=== PATIENT | female | born 1975 | race Caucasian/White ===

== ENCOUNTER 2016-06-27 11:16 | Inpatient (IN) | payer OTHER ==
[~2016-06-27] VITALS: Ht 165.1 cm; Wt 50.3 kg
--- NOTE | ~2016-06-27 | HC ---
[facility] [place] [address] [place] [address] CONSULTATION Name: BERTHA MONAHAN Room #: 459-P [facility] IN M.R.#: [id number] Admission: 06/27/16 Attend Phys: Jatinder Lawrence MD Discharge: Date of : 75 Report #: [id number] THIS REPORT FOR: //name// CC: LILI Lawrence MD DATE OF SERVICE: 06/28/2016 HISTORY OF PRESENT ILLNESS: The patient is a 40-year-old female with a history of alcohol and drug abuse who reports several days of nausea and vomiting. On admission yesterday, her AST was 7740, today is 11,712, total bilirubin today is 2.5, was 4.6 yesterday, ALT today is 3450 yesterday was 2433. The patient consumes alcohol on a regular basis high amount, typically vodka; however, she states her last drink was approximately 5 days ago. When asking her about Tylenol, she said her last dose of Tylenol was 3 days ago; however, it appears she may be taking a narcotic with acetaminophen in it as well, which she has been taking on a regular basis apparently. She does complain of some midepigastric abdominal pain. She denies any previous history of alcohol withdrawal, apparently was hospitalized at [facility] within the last few months and she was told she had a mass in her chest. She states this was found on an upper endoscopy as she presented with nausea, vomiting and hematemesis. I do not have a copy of these results. She denies any hematemesis at this time. She denies any melanotic stools. No fevers or chills. No shortness of breath. When entering the room, she was resting comfortably. She was easily awoken. She does not appear to be in any distress. Primary complaint at this time is nausea and feeling poor in general. She denies any chest pain. PAST MEDICAL HISTORY: History of alcohol abuse, history of anxiety. She has had ectopic kidney, previous history of renal stones, previous appendectomy, asthma. REVIEW OF SYSTEMS: As per HPI. MEDICATIONS: On admission are listed as K-Dur and Zofran, again it is unclear if she was taking a narcotic with acetaminophen. ALLERGIES: KETOROLAC, LATEX, MORPHINE, LORAZEPAM. SOCIAL HISTORY: She has a history of heavy alcohol use, usually a pint a day of vodka, although she states her last drink was 5 days ago. She also smokes on a regular basis. She also uses cocaine at times. FAMILY HISTORY: Negative for liver disease. [address] [address] CONSULTATION Name: BERTHA MONAHAN Room #: 459-[facility] IN M.R.#: [id number] Admission: 06/27/16 Attend Phys: Jatinder Lawrence MD Discharge: Date of : 75 Report #: [id number] PHYSICAL EXAMINATION: VITAL SIGNS: Temperature is 98.2, pulse , blood pressure 94/58, respiratory rate is 18. GENERAL: She is alert and oriented x 3 in no acute distress. HEENT: Sclerae nonicteric. Oropharynx is clear. She does have ecchymosis above and below her right eye, mild. NECK: Supple. CARDIOVASCULAR: Regular rate and rhythm. CHEST: Clear to auscultation bilaterally. ABDOMEN: Soft. She has significant previous scarring from abdominal surgery, but this is all well healed. She is mildly tender in the right upper quadrant, no obvious hepatomegaly is noted on exam. EXTREMITIES: No cyanosis, clubbing or edema. LABORATORY DATA: Sodium 135, potassium 3.3, chloride 101, bicarbonate 26, BUN 30, creatinine 0.9, glucose 89. AST is 11,712, total bilirubin is 2.5, calcium 8.3, ALT is 3450, total protein 5.9, albumin 2.7, ammonia level yesterday was 26, lactic acid level 1.5. Troponin less than 0.04, drug screen was positive for methamphetamines, benzodiazepine, cocaine and opiates. WBC is 2.1, hemoglobin 11.7, MCV is 106.1, platelet count is 63. Beta hCG is negative. IMAGING: Chest x-ray yesterday normal chest, no mass identified. Next, CAT scan of the abdomen and pelvis done yesterday as well, mild prominence of the central intrahepatic bile ducts and more pronounced prominence of the common bile duct measuring up to 1.6 cm with gradual tapering distally, this likely represents post-cholecystectomy changes, pancreas screen were normal. The right kidney is surgically absent. There is compensatory hypertrophy of the left kidney with a 1.4 cm cyst in the left superior renal pole, several 2 mm nonobstructive stones were noted in the left inferior renal pole. Distal esophagus unremarkable. There is wall thickening within the region of the gastric antrum and pylorus, which is unchanged. The bowel was normal in caliber. No free air or free fluid, no lymphadenopathy. There is circumferential wall thickening above the gallbladder, which is nonspecific. No worrisome lytic or blastic osseous lesions were seen. ASSESSMENT AND PLAN: Elevated liver function tests. Her AST and ALT are significantly elevated and actually higher today than yesterday. We will proceed with stat acetaminophen level as the patient may have been taking Lortab or medication like this with acetaminophen although she reports her last Tylenol dose was 3 days ago, especially with her history of alcohol abuse and elevation in her numbers. We will also check her stat INR. Beyond that we will also proceed with a viral hepatitis panel and autoimmune markers. We will continue obviously to follow her liver function tests closely. Currently, she is alert and awake. We will need to follow her ammonia levels as well. It is possible the AST and ALT level is being elevated, is due to alcohol. We will need to follow her closely for alcohol withdrawal, although she states her last [facility] [address] [place] [address] CONSULTATION Name: BERTHA MONAHAN Room #: 459-P ADM IN M.R.#: [id number] Admission: 06/27/16 Attend Phys: Jatinder Lawrence MD Discharge: Date of : 75 Report #: [id number] consumption was 5 days ago and she appears to be very stable at this time. We will continue to follow the patient closely. Thank you for allowing me to participate in her care. By: [id number] Artis Sanchez MD /nt
--- NOTE | ~2016-06-27 | EKG ---
[address] [address] ELECTROCARDIOGRAM REPORT Name: BERTHA MONAHAN Room #: 459-P ADM IN M.R.#: [id number] Admission: 06/27/16 Attend Phys: Jatinder Lawrence MD Discharge: Date of : 75 Report #: [id number] THIS REPORT FOR: //name// [facility] ED Test Date: 2016-06-27 Test Time: 11:31:02 Pat Name: BERTHA MONAHAN Department: Room: [facility] Gender: F Road [employer]: ron : 1975 Requested By: Red Mauro Order Number: [id number] MD: Manuel Tsang Measurements Intervals Wing Rate: 90 P: 78 NC: 141 QRS: 65 QRSD: 94 T: 41 QT: 366 QTc: 448 Interpretive Statements Sinus rhythm Right atrial enlargement Compared to ECG 06/13/2011 22:19:15 Atrial abnormality now present Electronically Signed On 06-29-2016 8:44:45 CDT by Manuel Tsang [email or web address] <ELECTRONICALLY SIGNED> By: Manuel Tsang MD 06/29/16 0844 113 30 Manuel Tsang MD /MATTHEW
[~2016-06-27 11:16] MED LIST: ADVAIRDISKUS; BACTRIM DS TAB1 EACH PO; CIPRO250 M1 PO; CLONAZEPAM PO; COLACE100 MG PO; CYMBALTA PO; DAZIDOX10 MG PO; DILAUDID 4 MG TA4 M1; DILAUDID 4 MG TA4 M1 PO; DILAUDID2 M1 PO; DURAGESIC1 EAC2; ELMIRON PO; FENTANYL PA25 MCG/HR; FENTANYL PATCH75 MCG TP; FLOMAX PO; FLOMAX0.4 MG PO; GLYCOLAX POWDER17 G1 PO; HYDROCODON-ACE1 EAC5 PO; HYDROCODONE-AP1 EAC6 PO; HYDROXYZINE HCL10 M1; HYDROXYZINE HCL50 MG PO; HYDROXYZINE PAM25 M1 PO; LAMICTAL; LIORESAL 10 MG10 MG PO; MACROBID; MEDROLDOSEPACK PO; MIRTAZAPINE PO; NEXIUM 40 MG CA40 M1; NOHOMEMEDICATIONS; NORCO 5-325 TA1 EACH PO; NYSTATIN1 EAC9 TOP; OXYBUTYNIN 5 MG5 M1; PENICILLIN VK500 M1 PO; PERCOCET 10-321 EACH; PERCOCET 10-321 EACH PO; PERCOCET 5-3251 EACH PO; PHENERGAN 25 MG25 M1; PHENERGAN 25 MG25 M1 PO; PHENERGAN25 M2 RE; POTASSIUM20 PO; PROVENTIL; PROVENTIL INH; PYRIDIUM200 MG PO; SEROQUEL PO; SOMA250 MG; TAMSULOSIN HCL0.4 MG PO; TRAMADOL 50 MG50 MG PO; ULTRAM 50MG TAB50 MG PO; VICODIN 5-5001 EACH PO; ZOFRAN ODT4 MG PO; ZOFRAN4 MG; ZOFRAN4 MG SL; [UNRECOGNIZED DRUG - OTHER]
[2016-06-27 11:20] VITALS: BP 115/84
[2016-06-27 12:46] LABS: ABSOLUTE NEUTROPHILS 2.4 thou/uL (1.4-8.2); BASOPHILS 1.5 % (0.0-2.0); EOSINOPHILS 0.9 % (0.0-3.0); HEMATOCRIT 44.6 % (37.0-47.0); HEMOGLOBIN 15.4 gm/dL (12.0-15.0); LYMPHOCYTES 11.3 % (24.0-44.0); MCH 36.3 pg (26.0-34.0); MCHC 34.6 g/dL (28.0-37.0); MCV 104.7 fL (80.0-100.0); MONOCYTES 6.1 % (1.0-8.0); POLYS 80.2 % (36.0-66.0); RBC 4.26 mil/uL (4.20-5.00); RDW 15.9 % (10.5-14.5)
[2016-06-27 12:48] LABS: MANUAL DIFF NO
[2016-06-27 12:54] LABS: ANION GAP 10 mmol/L (7-16); BUN 37 mg/dL (7-18); CHLORIDE 94 mmol/L (98-107); CO2 30 mmol/L (21-32); CREATININE 0.9 mg/dL (0.6-1.0); GLUCOSE 98 mg/dL (74-106); POTASSIUM 3.3 mmol/L (3.5-5.1); SODIUM 134 mmol/L (136-145)
[2016-06-27 13:05] LABS: ALBUMIN 4.2 g/dL (3.4-5.0); ALKALINE PHOSPHATASE 270 U/L (46-116); SGPT 2433 U/L (30-65); TOTAL BILIRUBIN 4.6 mg/dL (<0.1-1.0); TOTAL PROTEIN 8.9 g/dL (6.4-8.2); TROPONIN-I < 0.04 ng/mL (<0.04-0.07)
[2016-06-27 13:23] LABS: SGOT 7740 U/L (15-37)
[2016-06-27 13:55] LABS: PLATELET COUNT 79 thou/uL (150-400); PLATELET ESTIMATE SLIGHTLY DECREASED
[2016-06-27 15:13] LABS: URINE BILIRUBIN 1+ (Negative); URINE BLOOD 2+ (Negative); URINE COLOR YELLOW; URINE GLUCOSE-RANDOM* NEGATIVE (Negative); URINE KETONES TRACE (Negative); URINE NITRITE NEGATIVE (Negative); URINE PROTEIN (DIPSTICK) 1+ (Negative)
[2016-06-27 15:23] LABS: ICTOTEST (BILI CONFIRMATORY) Positive (Negative)
[2016-06-27 15:39] LABS: AMP/METHAMP POSITIVE (Negative); BARBITURATES Negative (Negative); BENZODIAZEPINES POSITIVE (Negative); COCAINE POSITIVE (Negative); METHADONE Negative (Negative); OPIATES POSITIVE (Negative); PCP Negative (Negative); THC Negative (Negative)
[2016-06-27 15:43] LABS: CASTS None Seen /LPF (None Seen); SQUAMOUS >10 Many /LPF (0-3)
[2016-06-27 15:44] LABS: BACTERIA None Seen /HPF (None Seen); CRYSTALS None Seen /LPF (None Seen); URINE RBC 0-2 Rare /HPF (0-2); URINE WBC 0-5 Rare /HPF (0-5)
[2016-06-27 16:00] VITALS: BP 111/77
[2016-06-27 20:17] VITALS: BP 109/68
[2016-06-28 05:19] VITALS: BP 97/62
[2016-06-28 05:32] LABS: HEMATOCRIT 33.6 % (37.0-47.0); MCH 37.1 pg (26.0-34.0); MCHC 34.9 g/dL (28.0-37.0); MCV 106.1 fL (80.0-100.0); RBC 3.17 mil/uL (4.20-5.00); WBC 2.1 thou/uL (4.0-11.0)
[2016-06-28 05:34] LABS: HEMOGLOBIN 11.7 gm/dL (12.0-15.0)
[2016-06-28 05:55] LABS: ALBUMIN 2.7 g/dL (3.4-5.0); CALCIUM 8.3 mg/dL (8.5-10.1); CREATININE 0.9 mg/dL (0.6-1.0); POTASSIUM 3.3 mmol/L (3.5-5.1); TOTAL BILIRUBIN 2.5 mg/dL (<0.1-1.0); TOTAL PROTEIN 5.9 g/dL (6.4-8.2)
[2016-06-28 08:23] VITALS: BP 102/65
[2016-06-28 13:11] VITALS: BP 94/58
[2016-06-28 16:49] VITALS: BP 99/61
[2016-06-28 16:49] LABS: INR 1.3
[2016-06-28 21:35] VITALS: BP 99/67
[2016-06-29 04:05] VITALS: BP 112/71
[2016-06-29 06:14] LABS: ALBUMIN 2.6 g/dL (3.4-5.0); CALCIUM 8.2 mg/dL (8.5-10.1); CREATININE 0.7 mg/dL (0.6-1.0); DIRECT BILIRUBIN 1.3 mg/dL (<0.1-0.3); POTASSIUM 3.7 mmol/L (3.5-5.1); TOTAL BILIRUBIN 1.9 mg/dL (<0.1-1.0); TOTAL PROTEIN 5.4 g/dL (6.4-8.2)
[2016-06-29 07:15] VITALS: BP 110/71
[2016-06-29 11:28] VITALS: BP 117/84
[2016-06-29 16:15] VITALS: BP 126/92
[2016-06-29 22:21] VITALS: BP 148/106
[2016-06-30 02:00] VITALS: BP 111/65
[2016-06-30 05:35] LABS: HEMATOCRIT 32.2 % (37.0-47.0); HEMOGLOBIN 11.2 gm/dL (12.0-15.0); MCH 36.6 pg (26.0-34.0); MCHC 34.7 g/dL (28.0-37.0); MCV 105.6 fL (80.0-100.0); RBC 3.05 mil/uL (4.20-5.00); RDW 15.7 % (10.5-14.5); WBC 3.6 thou/uL (4.0-11.0)
[2016-06-30 06:03] LABS: ALBUMIN 2.7 g/dL (3.4-5.0); CALCIUM 7.9 mg/dL (8.5-10.1); CREATININE 0.6 mg/dL (0.6-1.0); POTASSIUM 3.5 mmol/L (3.5-5.1); TOTAL PROTEIN 5.5 g/dL (6.4-8.2)
[2016-06-30 07:18] VITALS: BP 121/77
[2016-06-30 11:42] VITALS: BP 141/101
[2016-06-30] MEDS ORDERED: VITAMIN B-1100 M2 PO (14:02)
[2016-06-30 14:10] VITALS: BP 141/101
[2016-06-30 15:06] LABS: CERULOPLASMIN 21.2 mg/dL (19.0-39.0)
[2016-06-30 16:08] LABS: HEPATITIS C VIRUS AB >11.0 (0.0-0.9)
[2016-07-01 15:07] LABS: MITOCHONDRIAL ANTIBODY 38.8 Units (0.0-20.0)
== END 2016-06-30 14:47 | disposition home or self-care (01) | DRG 441 ==
LOC: ER 11:16 → EROBS 14:11 → 4W 14:11
PROVIDERS: Hospitalist; Internal Medicine Gastroenterology; Nurse Practitioner; Specialist
DX: K75.9 Inflammatory liver disease, unspecified (principal); E43 Unspecified severe protein-calorie malnutrition; Z68.1 Body mass index [BMI] 19.9 or less, adult; F41.9 Anxiety disorder, unspecified; R11.2 Nausea with vomiting, unspecified; J45.909 Unspecified asthma, uncomplicated; F17.210 Nicotine dependence, cigarettes, uncomplicated; F10.10 Alcohol abuse, uncomplicated; Y90.9 Presence of alcohol in blood, level not specified; F11.10 Opioid abuse, uncomplicated; F15.10 Other stimulant abuse, uncomplicated; F14.10 Cocaine abuse, uncomplicated; C76.1 Malignant neoplasm of thorax; E83.52 Hypercalcemia; E87.6 Hypokalemia; F13.10 Sedative, hypnotic or anxiolytic abuse, uncomplicated; R19.00 Intra-abdominal and pelvic swelling, mass and lump, unspecified site; Z91.040 Latex allergy status; Z79.899 Other long term (current) drug therapy; Z88.8 Allergy status to other drugs, medicaments and biological substances; Z88.6 Allergy status to analgesic agent; Z90.49 Acquired absence of other specified parts of digestive tract; Z87.442 Personal history of urinary calculi; Z90.5 Acquired absence of kidney; Z90.711 Acquired absence of uterus with remaining cervical stump
CPT/HCPCS: 10045

== ENCOUNTER 2016-07-04 17:09 | Emergency (ER) | payer OTHER ==
[~2016-07-04] VITALS: Ht 165.1 cm; Wt 52.2 kg
[~2016-07-04 17:09] MED LIST changes: +VITAMIN B-1100 M2 PO
[2016-07-04 18:44] LABS: AMP/METHAMP Negative (Negative); BARBITURATES Negative (Negative); BENZODIAZEPINES Negative (Negative); COCAINE Negative (Negative); OPIATES POSITIVE (Negative); PCP Negative (Negative); THC Negative (Negative)
[2016-07-04 18:50] LABS: METHADONE Negative (Negative)
[2016-07-04 19:17] LABS: BASOPHILS 1.2 % (0.0-2.0); EOSINOPHILS 0.6 % (0.0-3.0); HEMATOCRIT 36.3 % (37.0-47.0); HEMOGLOBIN 12.5 gm/dL (12.0-15.0); LYMPHOCYTES 37.8 % (24.0-44.0); MANUAL DIFF NO; MCH 36.5 pg (26.0-34.0); MCHC 34.3 g/dL (28.0-37.0); MCV 106.3 fL (80.0-100.0); PLATELET COUNT 317 thou/uL (150-400); POLYS 53.4 % (36.0-66.0); RBC 3.42 mil/uL (4.20-5.00); RDW 15.8 % (10.5-14.5); WBC 5.6 thou/uL (4.0-11.0)
[2016-07-04 19:25] LABS: ANION GAP 5 mmol/L (7-16); BUN 4 mg/dL (7-18); CHLORIDE 108 mmol/L (98-107); CO2 32 mmol/L (21-32); CREATININE 0.6 mg/dL (0.6-1.0); GLUCOSE 96 mg/dL (74-106); POTASSIUM 3.4 mmol/L (3.5-5.1); SODIUM 145 mmol/L (136-145)
[2016-07-04 19:29] LABS: ALBUMIN 3.2 g/dL (3.4-5.0); ALKALINE PHOSPHATASE 211 U/L (46-116); DIRECT BILIRUBIN 0.2 mg/dL (<0.1-0.3); SALICYLATE < 2.8 mg/dL (2.8-20.0); SGOT 76 U/L (15-37); SGPT 398 U/L (30-65); TOTAL BILIRUBIN 0.3 mg/dL (<0.1-1.0); TOTAL PROTEIN 7.5 g/dL (6.4-8.2)
[2016-07-04 19:41] LABS: ACETAMINOPHEN < 2 ug/mL (10-30)
== END 2016-07-04 20:19 | disposition home or self-care (01) ==
LOC: ER 17:09
PROVIDERS: Nurse Practitioner
DX: M79.89 Other specified soft tissue disorders (principal); F10.10 Alcohol abuse, uncomplicated; F11.10 Opioid abuse, uncomplicated; J45.909 Unspecified asthma, uncomplicated; Z87.442 Personal history of urinary calculi; Z90.711 Acquired absence of uterus with remaining cervical stump; F41.9 Anxiety disorder, unspecified; Z90.5 Acquired absence of kidney; Z88.6 Allergy status to analgesic agent; Z91.040 Latex allergy status; Z88.8 Allergy status to other drugs, medicaments and biological substances; F17.210 Nicotine dependence, cigarettes, uncomplicated

== ENCOUNTER 2019-05-18 01:49 | Emergency (ER) | payer OTHER ==
[~2019-05-18] VITALS: Ht 165.1 cm; Wt 54.4 kg
--- NOTE | ~2019-05-18 | EMS ---
[facility] [address] [place] [address] EMS Patient Care Report Name: BERTHA MONAHAN Room #: REG DODIE Gallegos#: [id number] Admission: 05/18/19 Attend Phys: Discharge: Date of : 75 Report #: [id number] THIS REPORT FOR: //name// Report Transmitted: 05/18/2019 01:17 EMS Care Summary [place], [place]/[facility] Incident [id number] @ 05/18/2019 01:09 Incident Location [id number] [place], [place] [id number] Patient BERTHA MONAHAN Female, 43 Years 1975 Patient Address [id number] [place] [id number] Patient History Gastro-Esophageal Reflux Disease (GERD), Patient Allergies Morphine,Toradol, Patient Medications None Reported, Chief Complaint L KNEE PAIN Disposition Transported No Lights/[place] Dispatch Reason Sick Person Transported To [facility] Narrative UPON ARRIVAL PT SITTING UPRIGHT ON SIDE OF BED CONSCIOUS AND ALERT. PT STATES HER KNEE HAS BEEN LOCKING UP AND HURTING FOR 3 DAYS NOW. SHE HAS ALSO BEEN UNABLE TO PUT ANY WEIGHT ON IT FOR 3 DAYS. PT HAD SURGERY 3 WEEKS AGO ON HER KNEE AND THINKS SHE NEEDS THEM TAKEN OUT. PT CARRIED TO COT. PT HAS AN ELEVATED [facility] [address] [place] [address] EMS Patient Care Report Name: BERTHA MONAHAN Room #: REG ER El#: [id number] Admission: 05/18/19 Attend Phys: Discharge: Date of : 75 Report #: [id number] HR WITH HYPERTENSION AND APPEARS JITTERY. PT DENIES ANY DRUG USE. PT TRANSPORTED TO [facility]. Initial Vitals @:35P: 128,BP: 172/115,CO: 3,SpO2: 98, @:31P: 142,CO: 0,SpO2: 99, @:31P: 144,R: 16,BP: 172/109,Pain: 6/10,GCS: 15,SpO2: 98,Revised Trauma: 12, Assessments @:25MENTAL:Person Oriented,Time Oriented,Event Oriented,Place Oriented,SKIN:HEENT:Head/Face: No Abnormalities,LUNG SOUNDS:General: No Abnormalities,ABDOMEN:General: No Abnormalities,PELVIS//GI:EXTREMITIES:Left Arm: No Abnormalities,Right Arm: No Abnormalities,Left Leg: No Abnormalities,Right Leg: No Abnormalities,PULSE:Radial: 2+ Normal,NEURO:No Abnormalities, Impression Pain (Non-Traumatic) Procedures @01:25ALS AssessmentResponse: UnchangedSucceeded Timeline :08,Call Received :08,Dispatch Notified :,Dispatched 01:10,En Route 01:15,On Scene 01:20,At Patient 01:25,ALS Assessment,Response: UnchangedSucceeded, 01:31,BP: / M,PULSE: 142,RR: R,SPO2: 99 Ox,ETCO2: ,BG: ,PAIN: ,GCS: , 01:31,BP: 172/109 M,PULSE: 144,RR: 16 R,SPO2: 98 Ox,ETCO2: ,BG: ,PAIN: 6,GCS: 15, 01:34,Depart Scene 01:35,BP: 172/115 M,PULSE: 128,RR: R,SPO2: 98 Ox,ETCO2: ,BG: ,PAIN: ,GCS: , 01:45,At Destination 02:03,Call Closed Disclaimer [email or web address] Copyright 2020 [employer] This EMS Care Summary contains data elements from the applicable legal record (which may be displayed differently). It is designed to provide pertinent information for the following purposes: continuity of care, clinical quality, and state data reporting. The complete legal record is available to ED staff and administrators of the receiving hospital in [facility] Patient Tracker. All data is provided "as is."
[2019-05-18 04:07] LABS: ABSOLUTE NEUTROPHILS 5.2 thou/uL (1.4-8.2); BASOPHILS 0.3 % (0.0-2.0); EOSINOPHILS 1.5 % (0.0-3.0); HEMATOCRIT 39.7 % (37.0-47.0); LYMPHOCYTES 17.8 % (24.0-44.0); MCH 31.6 pg (26.0-34.0); MCHC 32.7 g/dL (28.0-37.0); MCV 96.5 fL (80.0-100.0); MONOCYTES 6.4 % (1.0-8.0); PLATELET COUNT 158 thou/uL (150-400); RBC 4.12 mil/uL (4.20-5.00); RDW 21.3 % (10.5-14.5)
[2019-05-18 04:24] LABS: ALBUMIN 3.6 g/dL (3.4-5.0); CALCIUM 9.4 mg/dL (8.5-10.1); CREATININE 0.7 mg/dL (0.6-1.0); TOTAL BILIRUBIN 0.6 mg/dL (<0.1-1.0); TOTAL PROTEIN 8.1 g/dL (6.4-8.2)
[2019-05-18 04:28] LABS: POTASSIUM 2.7 mmol/L (3.5-5.1)
[2019-05-18] MEDS ORDERED: POTASSIUM20 PO (05:08)
[2019-05-18 06:17] VITALS: BP 138/98
== END 2019-05-18 07:34 | disposition home or self-care (01) ==
LOC: ER 01:49
PROVIDERS: Emergency Medicine
DX: G89.18 Other acute postprocedural pain (principal); M25.562 Pain in left knee; E87.6 Hypokalemia; J45.909 Unspecified asthma, uncomplicated; F17.210 Nicotine dependence, cigarettes, uncomplicated; Z90.49 Acquired absence of other specified parts of digestive tract; Z90.710 Acquired absence of both cervix and uterus; Z85.29 Personal history of malignant neoplasm of other respiratory and intrathoracic organs; Z90.5 Acquired absence of kidney; Z88.6 Allergy status to analgesic agent; Z91.040 Latex allergy status; Z88.8 Allergy status to other drugs, medicaments and biological substances; Z88.5 Allergy status to narcotic agent